=== PATIENT | male | born 1950 | race Caucasian/White ===

== ENCOUNTER 2018-01-31 08:07 | Outpatient (CLI) | payer OTHER ==
[2018-01-31 08:34] LABS: Bilirubin Negative (Negative); Blood, Urine Negative (Negative); Clarity CLEAR (Clear); Glucose, Urine (Dipstick) Negative (Negative); Leukocyte Negative (Negative); Nitrite Negative (Negative); Protein, Urine (Dipstick) Negative (Neg-Trace); Specific Gravity, Urine 1.012 (1.002-1.036); Urobilinogen 0.2 mg/dL (0.2-1.0); pH, Urine 5.5 (5.0-9.0)
[2018-01-31 08:37] LABS: Anion Gap 13 mmol/L (10-20); BUN (Urea Nitrogen) 21 mg/dL (8.4-25.7); Bacteria/HPF None Seen HPF (None Seen); Calc. Creatinine Clearance 0 mL/min (70-130); Calcium 9.9 mg/dL (7.8-10.44); Carbon Dioxide 27 mmol/L (23-31); Chloride 103 mmol/L (98-107); Estimated GFR-MDRD 40; Glucose 121 mg/dL (80-115); Hyaline Casts/LPF 0-3 HYALINE CAST LPF (0-3 Hyaline); Potassium 4.6 mmol/L (3.5-5.1); RBC/HPF None Seen HPF (0-3); Sodium 138 mmol/L (136-145); Squamous Epithelial None Seen HPF (0-3); WBC/HPF None Seen HPF (0-3)
--- NOTE | 2018-01-31 10:17 | RAD ---
ABDOMEN ONE VIEW: HISTORY: A 67-year-old male with a history of a calculus of the kidney. COMPARISON: 01/18/2017 FINDINGS: Postop laminectomy. Again noted are several fairly densely calcific foci overlying the inferolateral margin of the right kidney. These are stable from prior studies. Prominent vascular calcifications . IMPRESSION: Stable abdomen. No evidence for ureteral calculus. POS: [facility]
== END 2018-01-31 08:08 | disposition home or self-care (01) ==
LOC: RAD 08:07
PROVIDERS: ATTEND Urology
DX: Z12.5 Encounter for screening for malignant neoplasm of prostate (principal); N20.0 Calculus of kidney; N18.9 Chronic kidney disease, unspecified
CPT/HCPCS: 36415; 74018; 80048; 81001; 87086; G0103

== ENCOUNTER 2019-02-11 08:43 | Outpatient (CLI) | payer OTHER ==
--- NOTE | 2019-02-11 09:07 | RAD ---
KUB: 02/11/2019 COMPARISON: 01/31/2018 HISTORY: Calculus of kidney FINDINGS: There are 2 nonspecific lateral calcifications within the right upper quadrant, measuring 7 mm and 2 mm respectively. There is a curvilinear calcification within the left upper quadrant inferior to the 12th rib measurin g 5 mm, new. Multilevel lumbar spine degenerative and postoperative change present. The bowel gas pattern is nonob structed. There is significant stool overlying the pelvis. IMPRESSION: Upper abdominal calcifications are noted. Calcification within the left upper quadrant is new and may represent a new renal calculus.
== END 2019-02-11 08:44 | disposition home or self-care (01) ==
LOC: RAD 08:43
PROVIDERS: ATTEND Urology
DX: N20.0 Calculus of kidney (principal); N28.89 Other specified disorders of kidney and ureter; Z12.5 Encounter for screening for malignant neoplasm of prostate; Z18.9 Retained foreign body fragments, unspecified material
CPT/HCPCS: 36415; 74018; 80048; 81003; 81015; 87086; G0103

== ENCOUNTER 2019-03-04 14:32 | Outpatient (CLI) | payer OTHER ==
--- NOTE | 2019-03-04 15:08 | CT ---
CT Stone Protocol 03/04/2019 12:00 AM HISTORY: Calculus of kidney. COMPARISON: 09/25/2014 Technique: Multiple contiguous axial CT images are obtained through the abdomen and pelvis without IV contrast. Coronal reformats are provided. FINDINGS: This examination is limited for the evaluation of solid organs and vascular structures due to the lac k of intravenous contrast. Lower Chest: Minimal linear scarring versus atelectasis is present at the medial right lung base. Abdomen: Liver: Grossly normal nonenhanced CT appearance. Gallbladder: Within normal limits for CT imaging. Pancreas: Grossly normal nonenhanced CT appearance. Spleen: Grossly normal nonenhanced CT appearance. Adrenals: Grossly normal nonenhanced CT appearance. Kidneys: Nonobstructing inferior pole right renal calculi are again seen. Largest measuring approxima tely 9 mm. The larger calcification is adjacent to an area of renal parenchymal cortical scarring which was also present on prior study. No left renal calculus is seen. A partially duplicated right r enal collecting system is again identified without evidence of hydronephrosis. The ureter of the lower pole moiety is mildly prominent which is nonspecific. The right ureteral stent noted previously noted in place has been removed. Punctate cortically based calcification is seen in the superior pole right kidney with stable subcentimeter hypodense lesion seen in the anterior aspect midportion r ight kidney which is difficult to further characterize on this nonenhanced CT exam. There is an oval-shaped increased density lesion seen within the posteromedial aspect midportion of the right kid ernesto. This measures approximately 2.1 cm. A lesion was partially imaged in this region on prior study in 2014 on the post enhanced CT exam which measured approximately 1.2 cm, but this is larger in size. This cannot be further characterized on this exam but may represent a Bosniak type II cystic lesion. However, given interval enlargement, follow-up CT scan with IV contrast following the renal m ass protocol is recommended for further evaluation. Minimal bilateral perinephric stranding is present. Pelvis: Urinary bladder: within normal limits. Reproductive Organs: No pelvic masses. Lymph Nodes: No enlarged lymph nodes. Bowel: Multiple oval-shaped radiopaque densities are seen within the cecum and ascending colon likely due to ingested material and possibly medication. Colonic diverticulosis is visualized. Loops of small bowel are normal in caliber. Appendix: The appendix is normal in caliber. Peritoneum: No free fluid, free air, or fluid collection. Retroperitoneum: within normal limits. Vessels: Vascular calcifications are seen in the abdominal aorta and involving the iliac arteries.. Abdominal Wall: within normal limits. Bones: Multilevel degenerative changes are seen throughout the thoracic and lumbar spine with promine nt endplate degenerative changes at multiple levels of the lumbar spine IMPRESSION: 1. Interval enlargement of a increased density lesion posteromedial midportion right kidney. This has enlarged when compared to study in 2015, and this area is not well assessed on prior precontrast study. Given enlargement of this lesion, a CT scan abdomen following the renal mass protocol before a nd after the administration of intravenous contrast is recommended for further evaluation. 2. Stable nonobstructing inferior pole right renal calculi with overlying cortical scarring. 3. Partially duplicated right renal collecting system. There is no hydronephrosis present. No left re nal or ureteral calculus is seen.
== END 2019-03-04 14:33 | disposition home or self-care (01) ==
LOC: CT 14:32
PROVIDERS: ATTEND Urology
DX: N20.0 Calculus of kidney (principal); N28.9 Disorder of kidney and ureter, unspecified
CPT/HCPCS: 74176

== ENCOUNTER 2019-03-11 13:44 | Outpatient (CLI) | payer OTHER ==
[~2019-03-11 13:44] MED LIST: Iopamidol 370 76% 100 ML VIAL ONE
--- NOTE | 2019-03-11 14:38 | CT ---
CT abdomen with and without contrast CT pelvis with and without contrast: (CT urogram) DATE: 03/11/2019 HISTORY: 68-year-old male with enlarging right renal lesion. COMPARISON: Noncontrast CT of 03/04/2019. FINDINGS: The approximately 2.4 x 1.5 x 2.0 cm mass at the posterior medial parenchyma of the right renal midpo le, just posterior to the right renal duplicated pelvis, has density of 49 Hounsfield units precontrast, 54 Hounsfield units venous phase, and 59 Hounsfield units during pyelographic excretory phase (no definite enhancement). On the contrast-enhanced CT of 08/11/2014, this lesion was approximately 1.2 x 1.2 x 1.3 cm. The double right ureters become moderately dilated at the mid ureteral level. The joint together at t he upper sacral level. The distal right ureter is mildly dilated. This appearance is similar to 03/04/2019, but the ureteral dilation is new since 08/11/2014. There is no hydronephrosis bilaterally. The 2 small right renal lower pole calculi mentioned on 03/04/2019, are again noted. No calculus in the ureters or bladder. Unremarkable bladder. No colonic diverticulitis. Scattered distal descending and proximal sigmoid colonic diverticula. No small bowel dilation. Ingested pills remain in the right colon. No major pathology identified involving abdominal aorta, left kidney, pancreas, adrenals, liver, or s pleen. No ascites or pneumoperitoneum. IMPRESSION: 1. The 2.4 cm mass in the right kidney is consistent with a hemorrhagic renal cyst. 2. 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 3. Mild dilation of the right ureter just proximal to the joining level. No hydronephrosis. 4. Nephrolithiasis consisting of 2 right renal lower pole calculi.
== END 2019-03-11 13:45 | disposition home or self-care (01) ==
LOC: BICCT 13:44 → CT 13:45
PROVIDERS: ATTEND Urology
DX: N28.1 Cyst of kidney, acquired (principal); N20.0 Calculus of kidney; N28.89 Other specified disorders of kidney and ureter; N28.82 Megaloureter
CPT/HCPCS: 74178; 82565; Q9967

== ENCOUNTER 2020-04-27 13:04 | Outpatient (CLI) | payer OTHER ==
[~2020-04-27 13:04] MED LIST changes: -Iopamidol 370 76% 100 ML VIAL ONE; +Iopamidol-370 76% 500 ML 1 ML ONE
--- NOTE | 2020-04-27 14:33 | RAD ---
SUPINE ABDOMEN: Date: 04/27/2020 HISTORY: Calculus of kidney. COMPARISON: 02/11/2019.. FINDINGS: There is a calcification overlying the lower pole of right kidney, which has similar appearance to th e prior exam. This continues to measure in the 7-8 mm range. There are at least two other tiny calcif ic densities overlying the mid and lower left kidney. Bowel content obscures detail. No definite calcification overlying the left kidney is seen on today's exam, although small calcifica tions could be obscured. There are phleboliths in the pelvis which are stable. IMPRESSION: Small calcifications are seen overlying the right mid and lower renal outline which are consistent wi th renal calculi. POS: [facility]
--- NOTE | 2020-04-27 15:10 | CT ---
CT ABDOMEN WITH AND WITHOUT IV CONTRAST: HISTORY: Complex renal cyst. COMPARISON: 03/11/2019. FINDINGS: The 2.5 cm mass involving the posteromedial mid pole of the right kidney is again seen with attenuati on values of 62 Hounsfield units on the noncontrasted exam, 66 Hounsfield units on the early post con trast, and 69 Hounsfield units on the delayed post contrast images, consistent with a hemorrhagic clara al cyst. The calculi in the inferior aspect of the right kidney are stable. No calculi are seen in the left k idney or visualized portions of either ureter. No hydroureteral nephrosis is seen. There is normal contrast excretion into the ureters bilaterally. A duplicated collecting system and a duplicated rig ht ureter are again seen. The duplicated right ureters join each other at the upper sacral level. The liver, spleen, pancreas, and adrenal glands are normal. No calcified gallstones are seen. No fr ee air, free fluid, or lymphadenopathy is noted. There are vascular calcifications without evidence of aneurysmal dilatation of the abdominal aorta. There are degenerative changes in the spine. The lung bases are unremarkable. IMPRESSION: Stable exam since 03/11/2019. POS: [facility]
== END 2020-04-27 13:05 | disposition home or self-care (01) ==
LOC: BICCT 13:04
PROVIDERS: ATTEND Urology
DX: N28.1 Cyst of kidney, acquired (principal); N20.0 Calculus of kidney; N18.9 Chronic kidney disease, unspecified; N40.0 Benign prostatic hyperplasia without lower urinary tract symptoms; Z12.5 Encounter for screening for malignant neoplasm of prostate; N28.89 Other specified disorders of kidney and ureter
CPT/HCPCS: 74018; 74170; 82565; Q9967

== ENCOUNTER 2021-03-02 13:38 | Outpatient (CLI) | payer OTHER | END 2021-03-02 13:39 | disposition home or self-care (01) | LOC: BICULT 13:38 | PROVIDERS: ATTEND Urology | DX: N18.9 Chronic kidney disease, unspecified (principal); N20.0 Calculus of kidney; N28.1 Cyst of kidney, acquired; Q62.5 Duplication of ureter; N28.89 Other specified disorders of kidney and ureter | CPT/HCPCS: 74018; 76770 ==

== ENCOUNTER 2021-07-07 13:34 | Outpatient (CLI) | payer OTHER ==
[2021-07-07 15:25] LABS: Hemoglobin 12.6 g/dL (13.5-17.5); Mean Corpuscular HGB CONC 33.9 g/dL (32.0-36.0); Mean Corpuscular Volume 85.5 fl (81.2-95.1); Mean Platelet Volume 9.8 fl (7.4-10.4); Platelet Count 248 10x3/uL (150-450); RBC Distribution Width 14.8 % (11.5-14.5); Red Blood Cell (RBC) Count 4.35 10x6/uL (4.32-5.72); White Blood Cell (WBC) Count 6.9 10x3/uL (3.5-10.5)
[2021-07-07 15:49] LABS: PTT 26.9 sec (22.0-33.0); Prothrombin Time 10.9 sec (9.5-12.1)
[2021-07-07 16:10] LABS: Chloride 101 mmol/L (98-107); Potassium 4.1 mmol/L (3.5-5.1); Sodium 138 mmol/L (136-145)
[2021-07-07 16:13] LABS: Anion Gap 16 mmol/L (10-20); BUN (Urea Nitrogen) 20 mg/dL (8.4-25.7); Calc. Creatinine Clearance 0 mL/min (70-130); Calcium 9.9 mg/dL (7.8-10.44); Carbon Dioxide 26 mmol/L (23-31); Glucose 155 mg/dL (80-115)
[2021-07-08 01:03] LABS: SARS-CoV-2 PCR by NAA Not Detected (NotDetected)
== END 2021-07-07 13:35 | disposition home or self-care (01) ==
LOC: LABBT 13:34
PROVIDERS: ATTEND Urology
DX: Z01.818 Encounter for other preprocedural examination (principal); Z20.822 Contact with and (suspected) exposure to COVID-19
CPT/HCPCS: 80048; 85027; 85610; 85730; 93005; 93010; U0003; U0005

== ENCOUNTER 2021-11-10 06:55 | Day surgery (SDC) | payer OTHER ==
[2021-11-03 12:30] VITALS: BMI 30.5
[2021-11-10] MEDS ORDERED: Levofloxacin 500 mg/D5W 100 ml Premix Bag ONE (08:16)
[2021-11-10] MEDS ORDERED: B & O ONE (08:19)
[2021-11-10] MEDS ORDERED: PHENYLEPHRINE-NS 100 MCG/ML 10 ML SYRINGE ONE (08:29)
[2021-11-10] MEDS ORDERED: Lidocaine 1% PF 5 ML VIAL ONE (08:29)
[2021-11-10] MEDS ORDERED: Ondansetron PF 4 MG/2 ML Vial ONE (08:29)
[2021-11-10] MEDS ORDERED: ePHEDrine 50 MG/ML VIAL ONE (08:29)
[2021-11-10] MEDS ORDERED: PROPOFOL 200 MG/20 ML VIAL ONE (08:29)
[2021-11-10] MEDS ORDERED: Fentanyl 100 MCG/2 ML VIAL ONE (08:43)
[2021-11-10] MEDS ORDERED: Oxybutynin 5 MG TAB ONE (09:19)
[2021-11-10] MEDS ORDERED: Phenazopyridine HCl 100 MG TAB ONE (09:19)
== END 2021-11-10 11:08 | disposition home or self-care (01) ==
LOC: SDC 06:55
PROVIDERS: ATTEND Urology
PROC: 0T7D8DZ Dilation of Urethra with Intraluminal Device, Via Natural or Artificial Opening Endoscopic (ICD-10-PCS; principal; 2021-11-10)
DX: N40.0 Benign prostatic hyperplasia without lower urinary tract symptoms (principal); G47.33 Obstructive sleep apnea (adult) (pediatric); I10 Essential (primary) hypertension; E11.9 Type 2 diabetes mellitus without complications; Z87.891 Personal history of nicotine dependence; Z79.82 Long term (current) use of aspirin; Z79.84 Long term (current) use of oral hypoglycemic drugs; Z79.890 Hormone replacement therapy; Z79.899 Other long term (current) drug therapy; Z91.048 Other nonmedicinal substance allergy status
CPT/HCPCS: J1956; J2405; J2704; J3010; J3490; L8699

== ENCOUNTER 2022-04-06 15:41 | Outpatient (CLI) | payer OTHER | END 2022-04-06 15:42 | disposition home or self-care (01) | LOC: ULT 15:41 | PROVIDERS: ATTEND Urology | DX: N20.0 Calculus of kidney (principal); N18.9 Chronic kidney disease, unspecified; N28.1 Cyst of kidney, acquired; N40.0 Benign prostatic hyperplasia without lower urinary tract symptoms; Q62.5 Duplication of ureter; N28.89 Other specified disorders of kidney and ureter | CPT/HCPCS: 74018; 76770 ==